=== PATIENT | male | born 1945 | race Caucasian/White ===

== ENCOUNTER → 2021-01-31 | Outpatient (CLI) | payer OTHER, MEDICARE ==
[~2021-01-31] MED LIST: ADULT LOW DOSE81 MG PO; AMOXICILLIN500 M1 PO; AZO BLADDER CO300 MG PO; FISH OIL 1,001000 M2 PO; LEVAQUIN 250 M250 MG PO; LIPITOR10 MG PO; LISINOPRIL5 MG PO; OCUVITE LUTEIN1 EAC1 PO; PRINIVIL10 MG PO; SUPER THERAVIT1 EACH PO; VITAMIN B COMP1 EACH PO
== END ==
LOC: LAB 09:23
PROVIDERS: ATTEND Student in an Organized Health Care Education/Training Program
DX: Z01.812 Encounter for preprocedural laboratory examination (principal); Z20.822 Contact with and (suspected) exposure to COVID-19

== ENCOUNTER → 2021-02-02 | Outpatient (CLI) | payer OTHER, MEDICARE ==
[~2021-02-02] VITALS: Ht 175.3 cm; Wt 77.1 kg
--- NOTE | 2021-02-04 10:47 | P ---
[facility] [address] PROCEDURE REPORT Name: BENJAMIN VILLAGOMEZ JR Room #: [facility]#: [id number] Admission: 02/02/21 Attend Phys: Hank Bahena Discharge: Date of : 47 Report #: [id number] THIS REPORT FOR: cc: FAM - Family physician unknown FAM - Family physician unknown Hank Morales MD ~ cc: Arcenio Silverman DATE OF SERVICE: 02/02/2021 PROCEDURE PERFORMED: Colonoscopy. HISTORY OF PRESENT ILLNESS: The patient is a 75-year-old male who presents today for routine screening colonoscopy. Last colonoscopy was approximately age 51. He denies any symptoms, no family history of colon cancer. DESCRIPTION OF PROCEDURE: The risks and benefits of the procedure were explained to the patient, those risks including but not limited to bleeding, perforation and the risk of sedation. He understood these risks and gave informed consent. Sedation was given using propofol per Anesthesia. Next, a digital rectal exam was initially performed, which was normal. Next, using a standard Olympus colonoscope, the scope was placed in the patient's anus and advanced under direct vision to the cecum. The overall prep was good. The cecum and ileocecal valve were normal in appearance. The ascending, transverse colon were normal. Multiple diverticula were noted in the descending and sigmoid colon. No evidence of inflammation, otherwise normal. The rectal mucosa was normal. On retroflexion, small nonbleeding internal hemorrhoids were noted. The scope was then withdrawn and the procedure terminated. The patient tolerated the procedure well. IMPRESSION: 1. Left-sided diverticulosis. 2. Small internal hemorrhoids. 3. Otherwise, normal colonoscopy. RECOMMENDATIONS: Consider repeat colonoscopy in 10 years. Thank you for allowing me to participate in his care. <ELECTRONICALLY SIGNED> By: Hank Morales MD 02/04/21 [id number] Hank Morales MD /nt
== END | disposition home or self-care (01) ==
LOC: GI
PROVIDERS: ATTEND Specialist
DX: Z12.11 Encounter for screening for malignant neoplasm of colon (principal); K57.30 Diverticulosis of large intestine without perforation or abscess without bleeding; K64.8 Other hemorrhoids; I10 Essential (primary) hypertension; E78.00 Pure hypercholesterolemia, unspecified; Z85.828 Personal history of other malignant neoplasm of skin; Z96.651 Presence of right artificial knee joint; Z98.41 Cataract extraction status, right eye; Z98.42 Cataract extraction status, left eye; Z98.890 Other specified postprocedural states; Z79.899 Other long term (current) drug therapy
CPT/HCPCS: 62110; 62900